=== PATIENT | female | born 1960 | race Caucasian/White ===

== ENCOUNTER 2017-04-28 11:43 | Emergency (ER) | payer OTHER ==
[~2017-04-28] VITALS: Wt 67.3 kg
[2017-04-28] MEDS ORDERED: AZIT250T94 PO (14:01)
[2017-04-28] MEDS ORDERED: UDROBDM PO (14:01)
--- NOTE | 2017-04-28 14:04 | ERD ---
ER Documentation Chief Complaint Date/Time DATE: 04/28/17 TIME: 14:03 Chief Complaint cough, sore throat HPI This 57-year-old female presents with a productive cough last week. She denies fevers, vomiting, chest pain, abdominal pain. ROS All systems reviewed and are negative except as per history of present illness. Medications Home Meds Active Scripts Guaifenesin-Dextromethorphan* (Robitussin* DM) 100MG/10MG/5ML Syrup, 5-10 ML PO Q4H Y for COUGH for 5 Days, ML 6 OZ Prov:JUAN MIGUEL PRO MD 04/28/17 Azithromycin* (Zithromax*) 250 Mg Tablet, 250 MG PO .ZPACK DIRECTED, #6 TAB TAKE 500 MG (2 TABS) THE FIRST DAY THEN 250 MG (1 TAB) DAYS 2-5 Prov:JUAN MIGUEL PRO MD 04/28/17 Allergies Allergies: Coded Allergies: No Known Allergy (Unverified , 04/28/17) PMhx/Soc History of Surgery: Yes (cyst removed from stomach.) Anesthesia Reaction: No Hx Neurological Disorder: No Hx Respiratory Disorders: No Hx Cardiac Disorders: No Hx Psychiatric Problems: No Hx Miscellaneous Medical Probl: No Hx Alcohol Use: No Hx Substance Use: No Hx Tobacco Use: No Smoking Status: Never smoker Physical Exam Vitals Vital Signs Date Time Temp Pulse Resp B/P Pulse Ox O2 Delivery O2 Flow Rate FiO2 04/28/17 11:56 97.9 80 20 108/61 99 Physical Exam Const: []Alert, [id number] Head: Atraumatic Eyes: Normal Conjunctiva ENT: Normal External Ears, Nose and Mouth.TMs and oropharynx normal. Neck: Full range of motion..~ No meningismus. Resp: Clear to auscultation bilaterally. Slight rhonchi without rales, wheezing or retractions Cardio: Regular rate and rhythm, no murmurs Abd: Soft, non tender, non distended. Normal bowel sounds Skin: No petechiae or rashes Back: No midline or flank tenderness Ext: No cyanosis, or edema Neur: Awake and alert Psych: Normal Mood and Affect Procedures/MDM . Patient presents with productive cough last week and will be treated for bronchitis with Zithromax and Robitussin. The patient was stable with no new complaints during the ER course. Clinically, there is no current evidence to suggest meningitis, sepsis, acute abdomen, pneumonia, acute coronary syndrome, pulmonary embolism, or any other emergent condition appearing to require further evaluation or hospitalization. The patient should certainly return for any new or worsening symptoms per the aftercare instructions. They should otherwise follow-up with her primary care doctor for reevaluation this week. Disclaimer: Inadvertent spelling and grammatical errors are likely due to EHR/ dictation software use and do not reflect on the overall quality of patient care. Also, please note that the electronic time recorded on this note does not necessarily reflect the actual time of the patient encounter. Departure Diagnosis: Primary Impression: Cough Condition: Stable Patient Instructions: Acute Bronchitis Additional Instructions: Recheck for new or worsening symptoms or primary care doctor. JUAN MIGUEL RPO MD Apr 28, 2017 14:04
[2017-04-28 14:14] VITALS: BP 110/64; PULSE 98; RESP 20; TEMP 98.3
== END 2017-04-28 14:30 | disposition home or self-care (01) ==
LOC: FTE 11:43
DX: R05 Cough (principal)
CPT/HCPCS: 99283

== ENCOUNTER 2017-07-23 09:50 | Emergency (ER) | payer OTHER ==
[~2017-07-23] VITALS: Ht 157.5 cm; Wt 78.0 kg
[~2017-07-23 09:50] MED LIST: AZIT250T94 PO; UDROBDM PO
[2017-07-23 09:51] VITALS: Ht 157.5 cm; Wt 78.0 kg
[2017-07-23] MEDS ORDERED: FLUT16SP17 NASAL (10:13)
--- NOTE | 2017-07-23 10:16 | ERD ---
ER Documentation Chief Complaint Chief Complaint ST HPI Patient is a 57-year-old female with no past medical history who presents to the ED with congestion, postnasal drip and sore throat 1 day. Denies fever or chills. Positive sick contacts. Denies chest pain, shortness of breath or difficulty breathing. Denies abdominal pain, nausea, vomiting or diarrhea. Denies headache or dizziness. Has been doing throat drops which have helped. No history of PE, DVT or ACS. denies any other complaints. ROS All systems reviewed and are negative except as per history of present illness. Medications Home Meds Active Scripts Fluticasone Propionate* (Fluticasone Propionate* Nasal) 50 Mcg/[place] - 16 Gm [place].susp, 1 SPRAY NASAL BID, #1 BOTTLE TO EACH NOSTRIL Prov:FAWAD VELAZQUEZ PA-C 07/23/17 Guaifenesin-Dextromethorphan* (Robitussin* DM) 100MG/10MG/5ML Syrup, 5-10 ML PO Q4H Y for COUGH for 5 Days, ML 6 OZ Prov:JUAN MIGUEL PRO MD 04/28/17 Azithromycin* (Zithromax*) 250 Mg Tablet, 250 MG PO .ZPACK DIRECTED, #6 TAB TAKE 500 MG (2 TABS) THE FIRST DAY THEN 250 MG (1 TAB) DAYS 2-5 Prov:JUAN MIGUEL PRO MD 04/28/17 Allergies Allergies: Coded Allergies: No Known Allergy (Unverified , 04/28/17) PMhx/Soc History of Surgery: Yes (cyst removed from stomach.) Anesthesia Reaction: No Hx Neurological Disorder: No Hx Respiratory Disorders: No Hx Cardiac Disorders: No Hx Psychiatric Problems: No Hx Miscellaneous Medical Probl: No Hx Alcohol Use: No Hx Substance Use: No Hx Tobacco Use: No FmHx Family History: No coronary disease, No diabetes, No other Physical Exam Vitals Vital Signs Date Time Temp Pulse Resp B/P Pulse Ox O2 Delivery O2 Flow Rate FiO2 07/23/17 09:51 98.1 89 18 130/89 99 Physical Exam GENERAL: Well-developed, well-nourished female. Appears in no acute distress. HEAD: Normocephalic, atraumatic. EYES: Pupils are equally reactive bilaterally. EOMs grossly intact. No conjunctival erythema. ENT: Moist mucous membranes. No uvula deviation. No kissing tonsils. No exudates. NECK: Supple. No lymphadenopathy or thyromegaly. No meningismus. negative kernig. negative brudinski. LUNG: Clear to auscultation bilaterally. No rhonchi, wheezing, rales or coarse breath sounds. HEART: Regular rate and rhythm. No murmurs, rubs or gallops. Extremities: Equal pulses bilaterally. No peripheral clubbing, cyanosis or edema. No unilateral leg swelling. NEUROLOGIC: Alert and oriented. Moving all four extremities. 5/5 strength in all extremities. Normal speech. Steady gait. SKIN: Normal color. Warm and dry. No rashes or lesions. Capillary refill < 2 seconds Procedures/MDM ER COURSE: I kept the patient and/or family informed of laboratory and diagnostic imaging results throughout the emergency room course. MEDICAL DECISION MAKING: This is a 57-year-old female who presents with sore throat, congestion and postnasal drip 1 day. Vital signs were reviewed. Patient is afebrile. Patient is not hypoxic. She is not toxic or ill-appearing. Patient likely has URI of viral etiology. At this time no antibiotics are needed and no further imaging studies. Low suspicion for peritonsillar abscess, strep pharyngitis, mononucleosis, dental abscess. Low suspicion for pneumonia, PE, pneumothorax, ACS, epiglottitis, obstruction, TB, pertussis, meningitis, sepsis. DISCHARGE: At this time, patient is stable for discharge and outpatient management with no new complaints during the ER course. Patient was sent home with Flonase and to do saltwater gargles, throat lozenges, zinc and vitamin C. Patient will be discharged home with instructions to recheck for new or worsening symptoms such as fever, nausea, weakness, LOC and to follow up with primary care in the next 1 -2 days. Patient was advised to return to the ER for any new or worsening symptoms. Plan was discussed and patient and/or family understands and agrees. Home instructions were given. Departure Diagnosis: Primary Impression: URI, acute Condition: Stable Patient Instructions: Uri, Viral, No Abx (Adult) Referrals: COMMUNITY CLINICS YOU HAVE RECEIVED A MEDICAL SCREENING EXAM AND THE RESULTS INDICATE THAT YOU DO NOT HAVE A CONDITION THAT REQUIRES URGENT TREATMENT IN THE EMERGENCY DEPARTMENT. FURTHER EVALUATION AND TREATMENT OF YOUR CONDITION CAN WAIT UNTIL YOU ARE SEEN IN YOUR DOCTORS OFFICE WITHIN THE NEXT 1-2 DAYS. IT IS YOUR RESPONSIBILITY TO MAKE AN APPOINTMENT FOR FOLOW-UP CARE. IF YOU HAVE A PRIMARY DOCTOR --you should call your primary doctor and schedule an appointment IF YOU DO NOT HAVE A PRIMARY DOCTOR YOU CAN CALL OUR PHYSICIAN REFERRAL HOTLINE AT IF YOU CAN NOT AFFORD TO SEE A PHYSICIAN YOU CAN CHOSE FROM THE FOLLOWING [facility] CLINICS [facility] [address] [facility] [address] [facility]. [facility] [address] [facility] [address] [facility] [address] [facility]. [facility]. [address] Additional Instructions: salt water gargles throat lozenges zinc vitamin c Call your primary care doctor TOMORROW for an appointment during the next 1-2 days.See the doctor sooner or return here if your condition worsens before your appointment time. FAWAD VELAZQUEZ PA-C Jul 23, 2017 10:16
[2017-07-24] MEDS ORDERED: AZIT250T94 PO (11:24)
[2017-07-24] MEDS ORDERED: UDROBDM PO (11:24)
== END 2017-07-23 10:37 | disposition home or self-care (01) ==
LOC: FTE 09:50
DX: J06.9 Acute upper respiratory infection, unspecified (principal)
CPT/HCPCS: 99283

== ENCOUNTER 2017-07-24 10:25 | Emergency (ER) | payer OTHER ==
[~2017-07-24] VITALS: Wt 48.2 kg
[~2017-07-24 10:25] MED LIST changes: +FLUT16SP17 NASAL
[2017-07-24] MEDS ORDERED: AZIT250T94 PO (11:24)
[2017-07-24] MEDS ORDERED: UDROBDM PO (11:24)
--- NOTE | 2017-07-24 11:27 | ERD ---
ER Documentation Chief Complaint Chief Complaint COUGH, CONGESTION, SOB HPI This 57-year-old female presents with cough and congestion last 3 days. She denies fevers, vomiting, shortness breath or chest pain. Her cough is slightly productive.She was seen here recently diagnosed with a viral illness but is requesting antibiotics and was unable to get into see her primary care doctor today, As they are closed. ROS All systems reviewed and are negative except as per history of present illness. Medications Home Meds Active Scripts Guaifenesin-Dextromethorphan* (Robitussin* DM) 100MG/10MG/5ML Syrup, 5 ML PO Q4H Y for COUGH for 5 Days, ML Prov:JUAN MIGUEL PRO MD 07/24/17 Azithromycin* (Zithromax*) 250 Mg Tablet, 250 MG PO .ZPACK DIRECTED, #6 TAB TAKE 500 MG (2 TABS) THE FIRST DAY THEN 250 MG (1 TAB) DAYS 2-5 Prov:JUAN MIGUEL PRO MD 07/24/17 Fluticasone Propionate* (Fluticasone Propionate* Nasal) 50 Mcg/[place] - 16 Gm [place].susp, 1 SPRAY NASAL BID, #1 BOTTLE TO EACH NOSTRIL Prov:FAWAD VELAZQUEZ PA-C 07/23/17 Guaifenesin-Dextromethorphan* (Robitussin* DM) 100MG/10MG/5ML Syrup, 5-10 ML PO Q4H Y for COUGH for 5 Days, ML 6 OZ Prov:JUAN MIGUEL PRO MD 04/28/17 Azithromycin* (Zithromax*) 250 Mg Tablet, 250 MG PO .ZPACK DIRECTED, #6 TAB TAKE 500 MG (2 TABS) THE FIRST DAY THEN 250 MG (1 TAB) DAYS 2-5 Prov:JUAN MIGUEL PRO MD 04/28/17 Allergies Allergies: Coded Allergies: No Known Allergy (Unverified , 04/28/17) PMhx/Soc History of Surgery: Yes (cyst removed from stomach.) Anesthesia Reaction: No Hx Neurological Disorder: No Hx Respiratory Disorders: No Hx Cardiac Disorders: No Hx Psychiatric Problems: No Hx Miscellaneous Medical Probl: No Hx Alcohol Use: No Hx Substance Use: No Hx Tobacco Use: No Physical Exam Vitals Vital Signs Date Time Temp Pulse Resp B/P Pulse Ox O2 Delivery O2 Flow Rate FiO2 07/24/17 10:30 98.5 65 17 109/56 100 Physical Exam Const: [] Head: Atraumatic Eyes: Normal Conjunctiva ENT: Normal External Ears, Nose and Mouth.Alert, not ill-appearing. Neck: Full range of motion..~ No meningismus. Resp: Clear to auscultation bilaterally. No rales or retractions or wheezing appreciated. Cardio: Regular rate and rhythm, no murmurs Abd: Soft, non tender, non distended. Normal bowel sounds Skin: No petechiae or rashes Back: No midline or flank tenderness Ext: No cyanosis, or edema Neur: Awake and alert Psych: Normal Mood and Affect Procedures/MDM Patient presents with worsening URI symptoms over the last 3 days. She may have a viral illness. Given the duration and patient request patient will be given a prescription of Zithromax and Robitussin but encouraged to hold antibiotics and allow viral illness to resolve. Departure Diagnosis: Primary Impression: Upper respiratory infection URI type: unspecified URI Qualified Code: J06.9 - Upper respiratory tract infection, unspecified type Condition: Stable Patient Instructions: Acute Bronchitis Additional Instructions: May be viral illness but will treat given request and duration. Recheck with primary doctor or for new or worsening symptoms. JUAN MIGUEL PRO MD Jul 24, 2017 11:27
== END 2017-07-24 11:35 | disposition home or self-care (01) ==
LOC: FTE 10:25
DX: J06.9 Acute upper respiratory infection, unspecified (principal)
CPT/HCPCS: 99283

== ENCOUNTER 2017-12-10 10:42 | Emergency (ER) | END 2017-12-10 11:00 | disposition home or self-care (01) ==